=== PATIENT | male | born 1950 | race Hispanic/Latino ===

== ENCOUNTER → 2018-12-24 | Outpatient (CLI) | payer OTHER ==
[~2018-12-24] MED LIST: IOHEXOL-350 75 ML VIAL IV ONE; LACT10SO32 PO; LANS30CA55 PO; METF-444 PO; POLY119P2 PO; PROP10TA10 PO; TORS100T16 PO
== END | disposition home or self-care (01) ==
LOC: RAH 07:40
PROVIDERS: ATTEND Family Medicine
DX: I51.7 Cardiomegaly (principal); N62 Hypertrophy of breast
CPT/HCPCS: 71275; Q9967

== ENCOUNTER 2019-10-12 13:26 | Emergency (ER) | payer OTHER | END 2019-10-12 15:34 | disposition home or self-care (01) | LOC: EDH 13:26 | DX: I87.2 Venous insufficiency (chronic) (peripheral) (principal); R60.0 Localized edema; Z98.890 Other specified postprocedural states; Z87.891 Personal history of nicotine dependence ==

== ENCOUNTER → 2020-05-13 | Outpatient (CLI) | payer OTHER ==
[~2020-05-13] MED LIST changes: +ALBUMIN (HUMAN) 25% 200 ML IV SCH; -IOHEXOL-350 75 ML VIAL IV ONE
[2020-05-13 09:03] LABS: INR 1.29 (0.85-1.15); PROTHROMBIN TIME 13.5 SEC (9.6-11.6)
[2020-05-13 09:04] LABS: PARTIAL THROMBOPLASTIN TIME 31.6 SEC (26.3-35.5)
[2020-05-13 14:24] LABS: APPEARANCE BODY FLUID TURBID (CLEAR); SPECIMENTYPE,BODY FLUID ASCITES
[2020-05-13 14:26] LABS: COLOR,BODY FLUID YELLOW (LT YELLOW); TOTAL VOLUME,BODY FLUID 5500 mL
[2020-05-13 14:36] LABS: BODY FLUID WBC 188 /cu. mm.
[2020-05-13 14:37] LABS: BODY FLUID RBC 3225 /cu. mm.
[2020-05-13 15:12] LABS: BF EOSINOPHIL 1 %; BF LYMPHOCYTE 32 %; BF MESOTHELIAL 49 %; BF MONOCYTE 1 %
== END | disposition home or self-care (01) ==
LOC: RAH 08:15
PROVIDERS: ATTEND Family Medicine
DX: K70.31 Alcoholic cirrhosis of liver with ascites (principal); K72.90 Hepatic failure, unspecified without coma; K76.6 Portal hypertension; M79.10 Myalgia, unspecified site; E11.51 Type 2 diabetes mellitus with diabetic peripheral angiopathy without gangrene; E11.630 Type 2 diabetes mellitus with periodontal disease; E66.01 Morbid (severe) obesity due to excess calories; D69.6 Thrombocytopenia, unspecified; K21.9 Gastro-esophageal reflux disease without esophagitis; Z90.49 Acquired absence of other specified parts of digestive tract; Z98.890 Other specified postprocedural states; Z72.89 Other problems related to lifestyle; Z87.891 Personal history of nicotine dependence; Z68.35 Body mass index [BMI] 35.0-35.9, adult; Z79.01 Long term (current) use of anticoagulants
CPT/HCPCS: 36415; 49083; 85610; 85730; 87071; 87205; 89051; A4215; P9046; 96365

== ENCOUNTER → 2020-07-08 | Outpatient (CLI) | payer OTHER ==
[~2020-07-08] MED LIST changes: +ALBUMIN (HUMAN) 25% 200 ML IV ONE; -ALBUMIN (HUMAN) 25% 200 ML IV SCH
[2020-07-08 10:18] LABS: HEMATOCRIT 37.5 % (42-54); MEAN CORPUSCULAR HEMOGLOBIN 33.2 pg (27.0-33.0); MEAN CORPUSCULAR HGB CONC 32.8 g/dL (32.0-36.0); MEAN CORPUSCULAR VOLUME 101.1 fL (79-99); PLATELET COUNT (AUTO) 101 K/uL (130-400); RED BLOOD CELL COUNT(AUTO) 3.71 MIL/uL (4.50-6.20); RED CELL DISTRIBUTION WIDTH 15.8 % (11.0-15.5); WHITE BLOOD COUNT (AUTO) 7.6 K/uL (4.8-10.8)
[2020-07-08 10:34] LABS: BASOPHILS % (AUTO) 0.3 % (0.0-5.0); EOSINOPHILS % (AUTO) 2.1 % (0.0-8.0); LYMPHOCYTES % (AUTO) 9.6 % (21.0-51.0); MONOCYTES % (AUTO) 8.4 % (3.0-13.0); NEUTROPHILS % (AUTO) 78.8 % (40.0-77.0)
[2020-07-08 10:44] LABS: ALBUMIN 2.2 g/dL (3.5-5.0); BILIRUBIN,TOTAL 2.1 mg/dL (0.2-1.0); CREATININE 0.9 mg/dL (0.5-1.5); TOTAL PROTEIN, SERUM 5.5 g/dL (6.0-8.3)
[2020-07-08 11:04] LABS: INR 1.23 (0.85-1.15); PROTHROMBIN TIME 13.2 SEC (9.6-11.6)
[2020-07-08 13:39] LABS: ALBUMIN,BODY FLUID 0.1 g/dL
[2020-07-08 13:49] LABS: APPEARANCE BODY FLUID CLOUDY (CLEAR); BODY FLUID WBC 80 /cu. mm.; COLOR,BODY FLUID LT YELLOW (LT YELLOW); SPECIMENTYPE,BODY FLUID ASCITES; TOTAL VOLUME,BODY FLUID 9000 mL
[2020-07-08 13:50] LABS: BODY FLUID RBC 1620 /cu. mm.
[2020-07-08 13:57] LABS: BF LYMPHOCYTE 6 %; BF MESOTHELIAL 74 %
== END | disposition home or self-care (01) ==
LOC: RAH 09:44
PROVIDERS: ATTEND Internal Medicine Gastroenterology
DX: R18.8 Other ascites (principal); R06.02 Shortness of breath
CPT/HCPCS: 36415; 49083; 71045; 80053; 82042; 84157; 85025; 85610; 87071; 87205; 89051; A4215; P9046; 96365

== ENCOUNTER → 2020-07-23 | Outpatient (CLI) | payer OTHER ==
[~2020-07-23] MED LIST changes: +ALBU0.63 IH; -ALBUMIN (HUMAN) 25% 200 ML IV ONE; +ALBUMIN (HUMAN) 25% 200 ML IV SCH; +CYAN500T9 PO; +DICL2100G TP; +DOXY100T2 PO; +FERR324T10 PO; +FURO40TA5 PO; +HYDR-4060 PO; +IBUP-2070 PO; +MULT-1367 PO; +OMEP40CA13 PO; +SPIR100T5 PO; +TAMS-1 PO; +TRAM50TA4 PO
[2020-07-23 13:32] LABS: APPEARANCE BODY FLUID TURBID (CLEAR); COLOR,BODY FLUID YELLOW (LT YELLOW); SPECIMENTYPE,BODY FLUID ASCITES; TOTAL VOLUME,BODY FLUID 7800 mL
[2020-07-23 13:33] LABS: BODY FLUID RBC 614 /cu. mm.; BODY FLUID WBC 187 /cu. mm.
[2020-07-23 13:50] LABS: BF LYMPHOCYTE 12 %; BF MESOTHELIAL 50 %; BF MONOCYTE 29 %
== END ==
LOC: RAH 07:34
PROVIDERS: ATTEND Internal Medicine Gastroenterology
DX: R18.8 Other ascites (principal)
CPT/HCPCS: 49083; 87071; 87205; 89051; A4215; P9046; 96365

== ENCOUNTER 2020-07-25 20:47 | Observation (INO) | payer OTHER ==
[~2020-07-25] VITALS: Ht 165.1 cm; Wt 85.7 kg
[~2020-07-25 20:47] MED LIST changes: -ALBU0.63 IH; -ALBUMIN (HUMAN) 25% 200 ML IV SCH; -CYAN500T9 PO; -DICL2100G TP; -DOXY100T2 PO; -FERR324T10 PO; -FURO40TA5 PO; -HYDR-4060 PO; -IBUP-2070 PO; -MULT-1367 PO; -OMEP40CA13 PO; -SPIR100T5 PO; -TAMS-1 PO; -TRAM50TA4 PO
[2020-07-25 21:52] LABS: BASOPHILS % (AUTO) 0.3 % (0.0-5.0); EOSINOPHILS % (AUTO) 0.5 % (0.0-8.0); HEMATOCRIT 35.4 % (42-54); MEAN CORPUSCULAR HEMOGLOBIN 33.4 pg (27.0-33.0); MEAN CORPUSCULAR HGB CONC 33.1 g/dL (32.0-36.0); MEAN CORPUSCULAR VOLUME 101.1 fL (79-99); MONOCYTES % (AUTO) 7.8 % (3.0-13.0); PLATELET COUNT (AUTO) 109 K/uL (130-400); RED CELL DISTRIBUTION WIDTH 14.7 % (11.0-15.5); WHITE BLOOD COUNT (AUTO) 11.2 K/uL (4.8-10.8)
[2020-07-25 22:02] LABS: POTASSIUM 3.8 mmol/L (3.5-5.1)
[2020-07-25 22:07] LABS: ALBUMIN 2.2 g/dL (3.5-5.0); BILIRUBIN,TOTAL 1.8 mg/dL (0.2-1.0); TOTAL PROTEIN, SERUM 4.8 g/dL (6.0-8.3)
[2020-07-25 22:23] LABS: INR 1.43 (0.85-1.15); PROTHROMBIN TIME 14.6 SEC (9.6-11.6)
[2020-07-25] MEDS ORDERED: NITROGLYCERIN 0.4 MG SL TAB SL PRN (23:45)
[2020-07-25] MEDS ORDERED: HYDROMORPHONE 1 MG/1 ML AMP IV PRN (23:45)
[2020-07-25] MEDS ORDERED: LACTULOSE 20 GM/30 ML UDCUP PO PRN (23:45)
[2020-07-25] MEDS ORDERED: GUAIFENESIN-DM 200/20 MG 10 ML PO PRN (23:45)
[2020-07-25] MEDS ORDERED: ZOLPIDEM TARTRATE 5 MG TAB PO PRN (23:45)
[2020-07-25] MEDS ORDERED: ONDANSETRON HCL 4 MG/2 ML VIAL IV PRN (23:45)
[2020-07-26 01:45] VITALS: BP 163/84
[2020-07-26 04:00] VITALS: BP 139/68
[2020-07-26 08:36] VITALS: BP 156/79
[2020-07-26] MEDS: FAMOTIDINE/PF 20 MG/2 ML VIAL IV SCH ×2 (08:43→20:39)
[2020-07-26] MEDS ORDERED: FUROSEMIDE 10 MG/ML 4ML VIAL IV SCH (11:15)
[2020-07-26] MEDS ORDERED: GLUCAGON 1MG KIT 1 MG ML IM PRN (11:30)
[2020-07-26] MEDS ORDERED: DEXTROSE 50%-WATER 50 ML DISP.SYRIN IV PRN (11:30)
[2020-07-26] MEDS: INSULIN HUMULIN R 100 UNIT/ML 3ML SQ SCH ×3 (11:30→20:39)
[2020-07-26] MEDS: DOXYCYCLINE 100MG+NS 250ML 250 ML IV SCH ×2 (11:41→20:39)
[2020-07-26] MEDS: CEFTRIAXONE SODIUM 1 GM IVP SCH (11:41)
[2020-07-26 12:25] LABS: MEAN CORPUSCULAR HEMOGLOBIN 34.3 pg (27.0-33.0); MEAN CORPUSCULAR HGB CONC 34.2 g/dL (32.0-36.0); MEAN CORPUSCULAR VOLUME 100.3 fL (79-99); RED BLOOD CELL COUNT(AUTO) 3.29 MIL/uL (4.50-6.20); RED CELL DISTRIBUTION WIDTH 14.5 % (11.0-15.5); WHITE BLOOD COUNT (AUTO) 8.3 K/uL (4.8-10.8)
[2020-07-26 13:25] LABS: CREATININE 0.7 mg/dL (0.5-1.5); POTASSIUM 3.8 mmol/L (3.5-5.1)
[2020-07-26 16:33] VITALS: BP 136/66
[2020-07-26] MEDS: FUROSEMIDE 40 MG TABLET PO SCH (16:34)
[2020-07-26] MEDS: SPIRONOLACTONE 25 MG TAB PO SCH (16:34)
[2020-07-26 20:18] VITALS: BP 131/75
[2020-07-26] MEDS: PROPRANOLOL HCL 10 MG TAB PO SCH (20:39)
[2020-07-26] MEDS ORDERED: ALBU0.63 IH (20:54)
[2020-07-26] MEDS ORDERED: MULT-1367 PO (21:03)
[2020-07-26] MEDS ORDERED: DICL2100G TP (21:03)
[2020-07-26] MEDS ORDERED: DOXY100T2 PO (21:03)
[2020-07-26] MEDS ORDERED: FERR324T10 PO (21:03)
[2020-07-26] MEDS ORDERED: OMEP40CA13 PO (21:03)
[2020-07-26] MEDS ORDERED: TAMS-1 PO (21:03)
[2020-07-26] MEDS ORDERED: IBUP-2070 PO (21:03)
[2020-07-26] MEDS ORDERED: TRAM50TA4 PO (21:03)
[2020-07-26] MEDS ORDERED: LACT10SO32 PO (21:03)
[2020-07-26] MEDS ORDERED: FURO40TA5 PO (21:03)
[2020-07-26] MEDS ORDERED: HYDR-4060 PO (21:03)
[2020-07-26] MEDS ORDERED: SPIR100T5 PO (21:03)
[2020-07-26] MEDS ORDERED: CYAN500T9 PO (21:03)
[2020-07-26 23:27] VITALS: BP 138/71
[2020-07-27] MEDS: PROPRANOLOL HCL 10 MG TAB PO SCH ×3 (03:27→19:57)
[2020-07-27 04:02] VITALS: BP 114/55
[2020-07-27 05:32] LABS: HEMATOCRIT 33.2 % (42-54); MEAN CORPUSCULAR HEMOGLOBIN 33.8 pg (27.0-33.0); MEAN CORPUSCULAR HGB CONC 33.1 g/dL (32.0-36.0); MEAN CORPUSCULAR VOLUME 102.2 fL (79-99); RED BLOOD CELL COUNT(AUTO) 3.25 MIL/uL (4.50-6.20); RED CELL DISTRIBUTION WIDTH 14.4 % (11.0-15.5); WHITE BLOOD COUNT (AUTO) 8.3 K/uL (4.8-10.8)
[2020-07-27 05:51] LABS: CREATININE 0.9 mg/dL (0.5-1.5); POTASSIUM 4.2 mmol/L (3.5-5.1)
[2020-07-27] MEDS: INSULIN HUMULIN R 100 UNIT/ML 3ML SQ SCH ×4 (06:02→19:57)
[2020-07-27 06:14] LABS: INR 1.29 (0.85-1.15); PROTHROMBIN TIME 13.2 SEC (9.6-11.6)
[2020-07-27 06:18] LABS: APPEARANCE,URINE Clear (CLEAR); BILIRUBIN,URINE Negative (NEGATIVE); COLOR,URINE Dark Yellow (YELLOW); GLUCOSE, URINE (UA) Negative (NEGATIVE); KETONES,URINE Negative (NEGATIVE); LEUKOCYTE ESTERASE ,URINE Negative (NEGATIVE); NITRATE,URINE Negative (NEGATIVE); OCCULT BLOOD,URINE Negative (NEGATIVE); PH,URINE 6.5 (5.0-8.0); PROTEIN,URINE Negative (NEGATIVE)
[2020-07-27 08:07] VITALS: BP 142/67
[2020-07-27] MEDS: ENOXAPARIN SODIUM 40 MG/0.4 ML SYRINGE SQ SCH ×2 (09:00→10:24)
[2020-07-27] MEDS ORDERED: ENOXAPARIN SODIUM 30 MG/0.3 ML SQ SCH (09:00)
[2020-07-27] MEDS: SPIRONOLACTONE 25 MG TAB PO SCH ×2 (09:23→18:39)
[2020-07-27] MEDS: FAMOTIDINE/PF 20 MG/2 ML VIAL IV SCH ×2 (09:24→19:57)
[2020-07-27] MEDS: FUROSEMIDE 40 MG TABLET PO SCH ×2 (09:24→18:40)
[2020-07-27] MEDS: DOXYCYCLINE 100MG+NS 250ML 250 ML IV SCH ×2 (10:23→19:57)
[2020-07-27] MEDS ORDERED: VANCOMYCIN 1GM+NS 250ML 250 ML IV SCH (12:15)
[2020-07-27] MEDS ORDERED: VANCOMYCIN PROTOCOL PER PHARMACY IV SCH (12:15)
[2020-07-27] MEDS ORDERED: COMPOUND IV REFRIGERATED 1 EACH IVSOLN MISC PRN (13:00)
[2020-07-27] MEDS ORDERED: VANCOMYCIN 1.5 GM in SODIUM CHLORIDE 0.9% 250 ML IV SCH (13:00)
[2020-07-27] MEDS: CEFTRIAXONE SODIUM 1 GM IVP SCH (14:14)
[2020-07-27 16:57] VITALS: BP 127/61
[2020-07-27 20:05] VITALS: BP 120/59
[2020-07-27 23:40] VITALS: BP 119/49
[2020-07-28] MEDS: PROPRANOLOL HCL 10 MG TAB PO SCH ×3 (03:08→19:40)
[2020-07-28 03:53] VITALS: BP 142/63
[2020-07-28] MEDS: VANCOMYCIN 750MG + NS 250 ML IV SCH ×4 (05:18→19:39)
[2020-07-28 05:34] LABS: MEAN CORPUSCULAR HEMOGLOBIN 34.6 pg (27.0-33.0); MEAN CORPUSCULAR HGB CONC 34.1 g/dL (32.0-36.0); MEAN CORPUSCULAR VOLUME 101.5 fL (79-99); RED BLOOD CELL COUNT(AUTO) 3.35 MIL/uL (4.50-6.20); RED CELL DISTRIBUTION WIDTH 14.6 % (11.0-15.5); WHITE BLOOD COUNT (AUTO) 7.2 K/uL (4.8-10.8)
[2020-07-28 05:44] LABS: CREATININE 0.8 mg/dL (0.5-1.5); POTASSIUM 3.4 mmol/L (3.5-5.1)
[2020-07-28 05:49] LABS: INR 1.23 (0.85-1.15); PROTHROMBIN TIME 12.6 SEC (9.6-11.6)
[2020-07-28] MEDS: INSULIN HUMULIN R 100 UNIT/ML 3ML SQ SCH ×2 (06:03→11:30)
[2020-07-28 07:30] VITALS: BP 144/69
[2020-07-28] MEDS: FUROSEMIDE 40 MG TABLET PO SCH ×2 (07:52→16:58)
[2020-07-28] MEDS: FAMOTIDINE/PF 20 MG/2 ML VIAL IV SCH ×2 (07:52→19:39)
[2020-07-28] MEDS: SPIRONOLACTONE 25 MG TAB PO SCH ×2 (07:52→16:58)
[2020-07-28] MEDS: DOXYCYCLINE 100MG+NS 250ML 250 ML IV SCH (08:23)
[2020-07-28 11:00] VITALS: BP 130/55
[2020-07-28] MEDS ORDERED: POTASSIUM CHLORIDE 20MEQ/100ML 100 ML IV PRN (12:00)
[2020-07-28] MEDS ORDERED: LIDOCAINE HCL-MPF 1% 2ML VIAL IV PRN (12:00)
[2020-07-28] MEDS ORDERED: POTASSIUM CHLORIDE 10% ELIXIR 20 MEQ/15 ML UDCUP PO PRN (12:00)
[2020-07-28] MEDS: CEFTRIAXONE SODIUM 1 GM IVP SCH (12:26)
[2020-07-28 16:00] VITALS: BP 124/54
[2020-07-28] MEDS: POTASSIUM CHLORIDE 20 MEQ ERTAB PO PRN ×2 (17:00→19:02)
[2020-07-28] MEDS ORDERED: APIXABAN 5 MG TABLET PO SCH (21:00)
== END 2020-07-28 19:49 ==
LOC: EDH 20:47 → EDHIP 23:33 → 3AH 07-26 01:11
PROVIDERS: ADMIT Internal Medicine Critical Care Medicine; ATTEND Internal Medicine Critical Care Medicine
DX: A41.9 Sepsis, unspecified organism (principal); Z20.822 Contact with and (suspected) exposure to COVID-19; L03.115 Cellulitis of right lower limb; E11.65 Type 2 diabetes mellitus with hyperglycemia; K74.60 Unspecified cirrhosis of liver; R18.8 Other ascites; G92 Toxic encephalopathy; I10 Essential (primary) hypertension; N39.0 Urinary tract infection, site not specified; K57.90 Diverticulosis of intestine, part unspecified, without perforation or abscess without bleeding; D12.6 Benign neoplasm of colon, unspecified; E66.9 Obesity, unspecified; E87.70 Fluid overload, unspecified; I82.412 Acute embolism and thrombosis of left femoral vein; Z79.899 Other long term (current) drug therapy; Z68.31 Body mass index [BMI] 31.0-31.9, adult
CPT/HCPCS: 36415 ×4; 71045; 76705; 80048 ×3; 80053; 80202; 81003; 82140 ×2; 82948 ×11; 83605 ×2; 83690; 85025; 85027 ×3; 85378; 85610 ×3; 85730 ×3; 87040 ×2; 87077; 87186; 87426; 93970; 96365; 96366 ×3; 96367; 96372; 96375; 96376 ×3; 97039 ×2; 97161; 97530; 99284; C1894; G0378 ×67; G8978; G8979; G8980; G8981; G8982; G8983; J0696 ×3; J1650; J1940; J3370 ×2; J3490 ×9; J7050 ×2; U0003

== ENCOUNTER 2021-03-16 07:44 | Day surgery (SDC) | payer OTHER, MEDICARE ==
[2021-03-16] VITALS (8 sets, daily range): BP systolic 88–105; BP diastolic 50–59
[~2021-03-16] VITALS: Ht 172.7 cm; Wt 75.7 kg
[~2021-03-16 07:44] MED LIST changes: +0.9%NACL 1000ML 1,000 ML IV ONE; +CHOL4PAC21 PO; +DICL20GE TP; +DOXY100T2 PO; +FAMO-136 PO; +FERR324T10 PO; +FURO40TA5 PO; -LANS30CA55 PO; +MOM30 PO; -POLY119P2 PO; +POTA20PA32 PO; +SIMV5TAB58 PO; +SPIR100T5 PO; +TAMS-1 PO; -TORS100T16 PO; +TRAM50TA4 PO
[2021-03-16] MEDS ORDERED: PROPOFOL 10 MG/ML 20ML VIAL IV ONE (10:09)
== END 2021-03-16 11:10 | disposition home or self-care (01) ==
LOC: DAH 07:44 → ENDO 07:44
PROVIDERS: ATTEND Internal Medicine Gastroenterology
DX: K74.60 Unspecified cirrhosis of liver (principal); Z20.822 Contact with and (suspected) exposure to COVID-19; K72.90 Hepatic failure, unspecified without coma; R18.8 Other ascites; Z79.899 Other long term (current) drug therapy; Z86.718 Personal history of other venous thrombosis and embolism; Z79.01 Long term (current) use of anticoagulants; Z90.49 Acquired absence of other specified parts of digestive tract; Z98.890 Other specified postprocedural states; Z82.49 Family history of ischemic heart disease and other diseases of the circulatory system
CPT/HCPCS: 43239; 82948 ×2; 87635; 88305; 88342; A4215 ×2; A4221; A4222; A4223; A4606; A4620; A4663; J2704; J7030

== ENCOUNTER 2021-05-14 11:40 | Observation (INO) | payer OTHER, MEDICARE ==
[~2021-05-14] VITALS: Ht 165.1 cm; Wt 73.4 kg
[~2021-05-14 11:40] MED LIST changes: -0.9%NACL 1000ML 1,000 ML IV ONE; -DOXY100T2 PO; -FURO40TA5 PO
[2021-05-14 12:24] LABS: BASOPHILS % (AUTO) 1.1 % (0.0-5.0); EOSINOPHILS % (AUTO) 12.7 % (0.0-8.0); HEMATOCRIT 30.6 % (42-54); LYMPHOCYTES % (AUTO) 20.4 % (21.0-51.0); MEAN CORPUSCULAR HEMOGLOBIN 33.6 pg (27.0-33.0); MEAN CORPUSCULAR HGB CONC 33.7 g/dL (32.0-36.0); MEAN CORPUSCULAR VOLUME 99.7 fL (79-99); MONOCYTES % (AUTO) 13.6 % (3.0-13.0); NEUTROPHILS % (AUTO) 51.9 % (40.0-77.0); PLATELET COUNT (AUTO) 112 K/uL (130-400); RED BLOOD CELL COUNT(AUTO) 3.07 MIL/uL (4.50-6.20); RED CELL DISTRIBUTION WIDTH 14.4 % (11.0-15.5); WHITE BLOOD COUNT (AUTO) 7.4 K/uL (4.8-10.8)
[2021-05-14 12:29] LABS: POTASSIUM 5.9 mmol/L (3.5-5.1)
[2021-05-14] MEDS ORDERED: ASPIRIN 325MG TAB PO SCH (12:30)
[2021-05-14] MEDS ORDERED: NITROGLYCERIN 1GM OINT 1 INCH/1GM TD SCH (12:30)
[2021-05-14 12:33] LABS: INR 1.27 (0.85-1.15); PROTHROMBIN TIME 13.5 SEC (9.6-11.6)
[2021-05-14 12:34] LABS: PARTIAL THROMBOPLASTIN TIME 34.9 SEC (26.3-35.5)
[2021-05-14 12:42] LABS: CREATININE 0.9 mg/dL (0.5-1.5)
[2021-05-14 12:44] LABS: B-TYPE NATRIURETIC PEPTIDE 73 pg/mL (0-100)
[2021-05-14 12:46] LABS: ALBUMIN 2.5 g/dL (3.5-5.0); BILIRUBIN,TOTAL 0.8 mg/dL (0.2-1.0); MAGNESIUM 1.6 mg/dL (1.80-2.40); TOTAL PROTEIN, SERUM 5.7 g/dL (6.0-8.3)
[2021-05-14] MEDS ORDERED: ONDANSETRON 4MG INJ ONE (12:57)
[2021-05-14] MEDS ORDERED: ONDANSETRON 4MG INJ IVP SCH (13:00)
[2021-05-14] MEDS ORDERED: SODIUM ZIRCONIUM CYCLOSILICATE 5 GM POWD.PACK PO SCH (14:00)
[2021-05-14] MEDS ORDERED: MORPHINE 2 MG SYG IVP PRN (17:00)
[2021-05-14] MEDS ORDERED: CLONIDINE HCL 0.1 MG TABLET PO PRN (17:00)
[2021-05-14] MEDS ORDERED: DOCUSATE SODIUM 100 MG CAP PO PRN (17:00)
[2021-05-14] MEDS ORDERED: ONDANSETRON 4MG INJ IVP PRN (17:00)
[2021-05-14] MEDS ORDERED: ACETAMINOPHEN 650 MG SUPPOSITORY RC PRN (17:00)
[2021-05-14] MEDS ORDERED: ACETAMINOPHEN 325 MG TAB PO PRN (17:00)
[2021-05-14] MEDS ORDERED: KAYEXALATE 15GM/60ML PO ONE ×2 (18:15→20:00)
[2021-05-14] MEDS ORDERED: ONDANSETRON 4MG INJ IV PRN (18:30)
[2021-05-14] MEDS ORDERED: NITROGLYCERIN 0.4 MG SL TAB SL PRN (18:30)
[2021-05-14] MEDS ORDERED: MAG/ALUM/SIMETH 30 ML UDCUP PO PRN (18:30)
[2021-05-14] MEDS ORDERED: MORPHINE 2 MG SYG IV PRN (18:30)
[2021-05-14] MEDS: 0.9%NACL 1000ML 1,000 ML IV SCH (19:58)
[2021-05-14] MEDS: FAMOTIDINE 20MG TAB PO SCH (20:25)
[2021-05-14] MEDS: INSULIN HUMULIN R 100 UNIT/ML 3ML SQ SCH (21:00)
[2021-05-15] MEDS ORDERED: MAGNESIUM 2GM PREMIX 50ML 50 ML IV SCH (01:30)
[2021-05-15 01:50] VITALS: BP 127/50
[2021-05-15 04:00] VITALS: BP 97/37
[2021-05-15] MEDS ORDERED: IOHEXOL 350 MG/ML 100ML INFUS..BTL IV ONE (04:21)
[2021-05-15] MEDS: 0.9%NACL 1000ML 1,000 ML IV SCH ×2 (04:49→23:00)
[2021-05-15] MEDS: INSULIN HUMULIN R 100 UNIT/ML 3ML SQ SCH ×4 (06:57→20:22)
[2021-05-15 07:39] LABS: BASOPHILS % (AUTO) 1.1 % (0.0-5.0); EOSINOPHILS % (AUTO) 12.8 % (0.0-8.0); HEMATOCRIT 28.7 % (42-54); LYMPHOCYTES % (AUTO) 21.6 % (21.0-51.0); MEAN CORPUSCULAR HEMOGLOBIN 33.7 pg (27.0-33.0); MEAN CORPUSCULAR HGB CONC 33.4 g/dL (32.0-36.0); MEAN CORPUSCULAR VOLUME 100.7 fL (79-99); MONOCYTES % (AUTO) 13.1 % (3.0-13.0); NEUTROPHILS % (AUTO) 51.1 % (40.0-77.0); PLATELET COUNT (AUTO) 92 K/uL (130-400); RED BLOOD CELL COUNT(AUTO) 2.85 MIL/uL (4.50-6.20); RED CELL DISTRIBUTION WIDTH 14.4 % (11.0-15.5); WHITE BLOOD COUNT (AUTO) 6.6 K/uL (4.8-10.8)
[2021-05-15 07:58] LABS: ALBUMIN 2.1 g/dL (3.5-5.0); BILIRUBIN,TOTAL 0.8 mg/dL (0.2-1.0); CREATININE 0.8 mg/dL (0.5-1.5); MAGNESIUM 1.6 mg/dL (1.80-2.40); POTASSIUM 4.8 mmol/L (3.5-5.1); TOTAL PROTEIN, SERUM 5.3 g/dL (6.0-8.3)
[2021-05-15 08:00] VITALS: BP 119/34
[2021-05-15] MEDS ORDERED: MAGNESIUM HYDROXIDE 30 ML/UDCUP PO SCH (09:00)
[2021-05-15] MEDS ORDERED: ENOXAPARIN SODIUM 1 MG/KG SQ SCH (09:00)
[2021-05-15] MEDS ORDERED: ENOXAPARIN SODIUM 40 MG/0.4 ML SYRINGE SQ SCH (09:00)
[2021-05-15] MEDS ORDERED: MAGNESIUM 2GM PREMIX 50ML 50 ML IV PRN (09:00)
[2021-05-15] MEDS: ASPIRIN 81MG CHEW TAB PO SCH (09:37)
[2021-05-15] MEDS: FAMOTIDINE 20MG TAB PO SCH ×2 (09:38→20:00)
[2021-05-15] MEDS: FERROUS FUMARATE 324 MG TABLET PO SCH (09:38)
[2021-05-15] MEDS: ENOXAPARIN SODIUM 80 MG/0.8 ML SQ SCH ×2 (09:39→20:02)
[2021-05-15] MEDS: PANTOPRAZOLE 40 MG TAB DR PO SCH (09:40)
[2021-05-15 12:00] VITALS: BP 101/62
[2021-05-15] MEDS: MIDODRINE HCL 5 MG TABLET PO SCH ×2 (15:00→20:02)
[2021-05-15 16:00] VITALS: BP 148/53
[2021-05-15 16:55] LABS: BASOPHILS % (AUTO) 1.1 % (0.0-5.0); EOSINOPHILS % (AUTO) 13.2 % (0.0-8.0); HEMATOCRIT 29.4 % (42-54); LYMPHOCYTES % (AUTO) 20.2 % (21.0-51.0); MEAN CORPUSCULAR HGB CONC 33.3 g/dL (32.0-36.0); MEAN CORPUSCULAR VOLUME 102.1 fL (79-99); MONOCYTES % (AUTO) 10.6 % (3.0-13.0); NEUTROPHILS % (AUTO) 54.6 % (40.0-77.0); PLATELET COUNT (AUTO) 87 K/uL (130-400); RED BLOOD CELL COUNT(AUTO) 2.88 MIL/uL (4.50-6.20); RED CELL DISTRIBUTION WIDTH 14.4 % (11.0-15.5); WHITE BLOOD COUNT (AUTO) 6.6 K/uL (4.8-10.8)
[2021-05-15 17:14] LABS: CREATININE 0.8 mg/dL (0.5-1.5); POTASSIUM 4.4 mmol/L (3.5-5.1)
[2021-05-15] MEDS: FUROSEMIDE 20 MG TABLET PO SCH (18:03)
[2021-05-15 20:00] VITALS: BP 101/40
[2021-05-16] VITALS: BP 133/55
[2021-05-16] MEDS: 0.9%NACL 1000ML 1,000 ML IV SCH (00:30)
[2021-05-16 04:00] VITALS: BP 89/41
[2021-05-16] MEDS: INSULIN HUMULIN R 100 UNIT/ML 3ML SQ SCH ×4 (05:37→20:36)
[2021-05-16 05:41] LABS: CREATININE 0.8 mg/dL (0.5-1.5); POTASSIUM 4.1 mmol/L (3.5-5.1)
[2021-05-16 08:00] VITALS: BP 123/45
[2021-05-16] MEDS: FAMOTIDINE 20MG TAB PO SCH ×2 (08:54→20:28)
[2021-05-16] MEDS: ASPIRIN 81MG CHEW TAB PO SCH (08:54)
[2021-05-16] MEDS: PANTOPRAZOLE 40 MG TAB DR PO SCH (08:54)
[2021-05-16] MEDS: FUROSEMIDE 20 MG TABLET PO SCH ×2 (08:55→17:21)
[2021-05-16] MEDS: MIDODRINE HCL 5 MG TABLET PO SCH ×3 (08:57→20:28)
[2021-05-16] MEDS: FERROUS FUMARATE 324 MG TABLET PO SCH (08:57)
[2021-05-16] MEDS: ENOXAPARIN SODIUM 80 MG/0.8 ML SQ SCH ×2 (09:00→20:29)
[2021-05-16 11:49] VITALS: BP 122/44
[2021-05-16] MEDS ORDERED: POLY17PO4 PO (13:47)
[2021-05-16 14:35] LABS: APPEARANCE,URINE Clear (CLEAR); BILIRUBIN,URINE Negative (NEGATIVE); COLOR,URINE Yellow (YELLOW); GLUCOSE, URINE (UA) Negative (NEGATIVE); KETONES,URINE Negative (NEGATIVE); LEUKOCYTE ESTERASE ,URINE Negative (NEGATIVE); NITRATE,URINE Negative (NEGATIVE); OCCULT BLOOD,URINE Negative (NEGATIVE); PH,URINE 5.5 (5.0-8.0); PROTEIN,URINE Negative (NEGATIVE); UROBILINOGEN,URINE 0.2 mg/dL (0.2-1.0)
[2021-05-16 16:00] VITALS: BP 126/52
[2021-05-16 20:00] VITALS: BP 111/43
== END 2021-05-16 22:40 ==
LOC: EDH 11:40 → EDHIP 16:50 → 3AH 05-15 00:31 → 3BH 05-15 22:20
PROVIDERS: ADMIT Internal Medicine Critical Care Medicine; ATTEND Internal Medicine Critical Care Medicine
DX: R07.89 Other chest pain (principal); E87.5 Hyperkalemia; E46 Unspecified protein-calorie malnutrition; E87.1 Hypo-osmolality and hyponatremia; D64.9 Anemia, unspecified; D69.6 Thrombocytopenia, unspecified; E11.9 Type 2 diabetes mellitus without complications; F19.90 Other psychoactive substance use, unspecified, uncomplicated; K74.60 Unspecified cirrhosis of liver; M19.90 Unspecified osteoarthritis, unspecified site; N40.0 Benign prostatic hyperplasia without lower urinary tract symptoms; R11.2 Nausea with vomiting, unspecified; Z74.01 Bed confinement status; Z83.3 Family history of diabetes mellitus; Z79.899 Other long term (current) drug therapy
CPT/HCPCS: 36415 ×3; 71045; 71275; 80048; 80053 ×2; 81003; 82140; 82550 ×4; 82948 ×9; 83735 ×3; 83874 ×3; 83880; 83930; 84100; 84145; 84484 ×11; 85025 ×3; 85378 ×2; 85610; 85730; 86850; 86900; 86901; 93005; 93306; 93356; 96361 ×2; 96365; 96366 ×2; 96372 ×2; 96375 ×2; 97039 ×4; 97161; 99285; G0378 ×50; J1650 ×3; J2405; J3475; J7030; Q9967